=== PATIENT | male | born 1965 ===

== ENCOUNTER 2023-03-20 05:25 | Day surgery (SDC) | payer OTHER ==
[~2023-03-20] VITALS: Ht 182.9 cm; Wt 79.4 kg
[~2023-03-20 05:25] MED LIST: CRESTOR5 MG PO; METFORMIN HCL500 M3 PO; TRICOR145 MG PO
[2023-03-20] MEDS ORDERED: GABAPENTIN300 M2 PO (10:05)
[2023-03-20] MEDS ORDERED: TRAMADOL HCL50 MG PO (10:06)
[2023-03-20] MEDS ORDERED: AMOX-CLAV 875-1 EACH PO (10:07)
[2023-03-20] MEDS ORDERED: DICLOFENAC SODI50 MG PO (10:07)
== END 2023-03-20 12:25 | disposition home or self-care (01) ==
LOC: CIR.AMB 05:25
PROVIDERS: ATTEND Surgery
DX: N48.6 Induration penis plastica (principal); Z20.822 Contact with and (suspected) exposure to COVID-19; E78.5 Hyperlipidemia, unspecified; E11.9 Type 2 diabetes mellitus without complications